=== PATIENT | female | born 1965 | race Caucasian/White ===

== ENCOUNTER 2016-08-31 19:22 | Emergency (ER) | payer MEDICAID ==
[~2016-08-31] VITALS: Ht 162.6 cm; Wt 98.0 kg
[2016-09-01] MEDS ORDERED: SODIUM CHLORIDE 0.9% 500 ML IV ONE (01:48)
[2016-09-01 01:53] LABS: PARTIAL THROMBOPLASTIN TIME 27.3 sec (24.0-34.0); PROTHROMBIN TIME 10.5 sec
[2016-09-01 01:57] LABS: BASOPHILS % 0.5 % (0.0-2.0); EOSINOPHILS % 0.1 % (0.0-5.0); HEMATOCRIT. 39.8 % (36.0-48.0); HEMOGLOBIN. 13.1 g/dL (12.0-16.0); LYMPHOCYTES % 10.7 % (20.0-50.0); MEAN CORPUSCULAR HEMOGLOBIN 27.2 pg (28.0-32.0); MEAN CORPUSCULAR VOLUME 82.8 fL (81.0-99.0); MEAN PLATELET VOLUME 10.4 fl (7.4-10.4); MONOCYTES % 1.9 % (2.0-8.0); NEUTROPHILS % 86.8 % (40.0-76.0); PLATELET 158 x1000/uL (130-400); RED BLOOD CELL COUNT 4.81 mill/uL (4.2-5.4)
[2016-09-01] MEDS ORDERED: MECLIZINE 25MG TABLET PO ONE (02:00)
[2016-09-01 02:01] LABS: CARBON DIOXIDE 28 mEq/L (21-32); CHLORIDE 105 mEq/L (98-107)
[2016-09-01 04:52] LABS: CLARITY URINE CLOUDY (CLEAR); COLOR URINE YELLOW (YELLOW); GLUCOSE URINE NEGATIVE (NEGATIVE); KETONES URINE TRACE (NEGATIVE); LEUKOCYTE ESTERASE URINE 1+ (NEGATIVE); NITRITE URINE NEGATIVE (NEGATIVE); OCCULT BLOOD URINE NEGATIVE (NEGATIVE); PROTEIN URINE TRACE (NEGATIVE); SPECIFIC GRAVITY URINE 1.028 (1.005-1.030)
[2016-09-01 05:50] VITALS: BP 118/62
== END 2016-09-01 07:48 | disposition home or self-care (01) ==
LOC: ER 09-01 01:59
DX: E86.0 Dehydration (principal); H81.10 Benign paroxysmal vertigo, unspecified ear; N39.0 Urinary tract infection, site not specified; R51 Headache; Z98.890 Other specified postprocedural states
CPT/HCPCS: 36415; 80053; 81001; 82962; 85025; 85610; 85730; 87086; 96360; 99284; J7030; Z7610; J8597